=== PATIENT | female | born 1975 | race Caucasian/White ===

== ENCOUNTER 2017-08-06 13:29 | Outpatient (CLI) | payer OTHER | END 2017-08-06 13:40 | disposition home or self-care (01) | LOC: MRI 13:29 | DX: M51.17 Intervertebral disc disorders with radiculopathy, lumbosacral region (principal) | CPT/HCPCS: 72148 ==

== ENCOUNTER 2018-10-30 09:12 | Outpatient (CLI) | payer OTHER | END 2018-10-30 09:14 | disposition home or self-care (01) | LOC: SONOGRAMA 09:12 → MAMO-SONO 09:15 | DX: E04.1 Nontoxic single thyroid nodule (principal) ==

== ENCOUNTER 2022-09-06 09:53 | Outpatient (CLI) | payer OTHER ==
[~2022-09-06 09:53] MED LIST: SYNTHROID50 MCG
== END 2022-09-06 10:10 | disposition home or self-care (01) ==
LOC: MAMO-SONO 09:53
PROVIDERS: ATTEND Specialist
DX: E04.1 Nontoxic single thyroid nodule (principal); Z12.31 Encounter for screening mammogram for malignant neoplasm of breast; N60.11 Diffuse cystic mastopathy of right breast; N60.12 Diffuse cystic mastopathy of left breast

== ENCOUNTER 2024-09-02 09:17 | Outpatient (CLI) | payer OTHER | END 2024-09-02 09:23 | disposition home or self-care (01) | LOC: MAMO-SONO 09:17 | DX: N64.4 Mastodynia (principal); Z12.31 Encounter for screening mammogram for malignant neoplasm of breast ==

== ENCOUNTER 2025-02-25 08:21 | Outpatient (CLI) | payer OTHER | END 2025-02-25 08:26 | disposition home or self-care (01) | LOC: NUCLEAR 08:21 | PROVIDERS: ATTEND Internal Medicine Endocrinology, Diabetes & Metabolism | DX: I73.9 Peripheral vascular disease, unspecified (principal) ==

== ENCOUNTER 2025-02-26 07:58 | Outpatient (CLI) | payer OTHER | END 2025-02-26 07:59 | disposition home or self-care (01) | LOC: NUCLEAR 07:58 | PROVIDERS: ATTEND Internal Medicine Endocrinology, Diabetes & Metabolism | DX: I73.9 Peripheral vascular disease, unspecified (principal); I73.89 Other specified peripheral vascular diseases ==